=== PATIENT | female | born 1960 | race African-American/Black ===

== ENCOUNTER 2020-05-17 06:37 | Inpatient (IN) | payer MEDICAID ==
[~2020-05-17] VITALS: Ht 160 cm; Wt 71.3 kg
[~2020-05-17 06:37] MED LIST: ALBU18HF2 IH; FLUT1DIS3 INH; IPRA3AMP9 NEB; MET5 GT; P20 PO; THEOL PO
[2020-05-17] MEDS ORDERED: METHYLPREDNISOLONE SOD SUCC 125 MG/2 ML VIAL IV STA (07:20)
[2020-05-17] MEDS ORDERED: IPRATROPIUM BROMIDE (0.02%) 0.5MG/2.5ML NEB HHN STA (07:20)
[2020-05-17] MEDS ORDERED: MAGNESIUM 2 G PREMIX 50 ML IV ONE (07:30)
[2020-05-17 08:00] LABS: EOSINOPHILS % 7.1 % (0.0-5.0); HEMATOCRIT. 35.2 % (36.0-48.0); HEMOGLOBIN. 11.2 g/dL (12.0-16.0); LYMPHOCYTES % 45.2 % (20.0-50.0); MEAN CORPUSCULAR HEMOGLOBIN 25.4 pg (28.0-32.0); MEAN PLATELET VOLUME 9.5 fl (7.4-10.4); MONOCYTES % 5.6 % (2.0-8.0); NEUTROPHILS % 41.1 % (40.0-76.0); PLATELET 416 x1000/uL (130-400); RED CELL DISTRIBUTION WIDTH 16.9 % (11.6-14.6)
[2020-05-17 08:07] LABS: CHLORIDE 105 mEq/L (98-107)
[2020-05-17] MEDS: ALBUTEROL (0.083%) 2.5MG/3ML NEB HHN SCH ×3 (08:10→08:50)
[2020-05-17] MEDS ORDERED: AZITHROMYCIN 500 MG in DEXT 5% WATER 250 ML IV SCH (10:00)
[2020-05-17] MEDS ORDERED: CEFTRIAXONE 1 G PREMIX 50 ML IV SCH (10:00)
[2020-05-17] MEDS ORDERED: ALBUTEROL (0.5%) 2.5MG/0.5ML NEB HHN ONE (12:45)
[2020-05-17] MEDS ORDERED: ONDANSETRON HCL 4MG/2ML INJ IV PRN (15:15)
[2020-05-17] MEDS ORDERED: ACETAMINOPHEN 325MG TABLET PO PRN (15:15)
[2020-05-17] MEDS: METHYLPREDNISOLONE SOD SUCC 40 MG/ML VIAL IV SCH ×2 (17:10→22:00)
[2020-05-17] MEDS ORDERED: ALBUTEROL 6.7GM HFA INHALER ORI SCH (18:00)
[2020-05-17] MEDS: ENOXAPARIN 40MG/0.4ML SYR SUBCUT SCH (20:00)
[2020-05-17] MEDS: IPRATROPIUM/ALBUTEROL 0.5-3(2.5)MG/3ML NEB HHN SCH (20:42)
[2020-05-17] MEDS: FAMOTIDINE 20MG TABLET PO SCH (21:00)
[2020-05-18] VITALS (7 sets, daily range): BP systolic 116–168; BP diastolic 73–89
[2020-05-18] MEDS: IPRATROPIUM/ALBUTEROL 0.5-3(2.5)MG/3ML NEB HHN PRN ×3 (00:41→15:23)
[2020-05-18] MEDS ORDERED: METH-611 PO (02:06)
[2020-05-18] MEDS: METHYLPREDNISOLONE SOD SUCC 40 MG/ML VIAL IV SCH ×3 (06:22→21:17)
[2020-05-18] MEDS: AZITHROMYCIN 250 MG TABLET PO SCH (08:14)
[2020-05-18] MEDS: FAMOTIDINE 20MG TABLET PO SCH ×2 (08:14→21:17)
[2020-05-18] MEDS: IPRATROPIUM/ALBUTEROL 0.5-3(2.5)MG/3ML NEB HHN SCH ×3 (09:37→21:14)
[2020-05-18] MEDS ORDERED: CEFTRIAXONE 1,000 MG in DEXTROSE 5% WATER 50 ML IV SCH (11:30)
[2020-05-18] MEDS: CEFTRIAXONE 1,000 MG in DEXTROSE 5% WATER 50 ML IV SCH (12:41)
[2020-05-18] MEDS: BENZONATATE 100MG CAPSULE PO PRN (14:12)
[2020-05-18] MEDS: METHADONE HCL 10MG TABLET PO SCH (15:04)
[2020-05-18] MEDS: ENOXAPARIN 40MG/0.4ML SYR SUBCUT SCH (21:17)
[2020-05-19] VITALS: BP 137/91
[2020-05-19] MEDS: IPRATROPIUM/ALBUTEROL 0.5-3(2.5)MG/3ML NEB HHN SCH ×4 (01:03→20:15)
[2020-05-19 04:00] VITALS: BP 135/72
[2020-05-19] MEDS: METHYLPREDNISOLONE SOD SUCC 40 MG/ML VIAL IV SCH ×3 (06:45→21:38)
[2020-05-19 08:07] VITALS: BP 134/87
[2020-05-19] MEDS: AZITHROMYCIN 250 MG TABLET PO SCH (09:13)
[2020-05-19] MEDS: METHADONE HCL 10MG TABLET PO SCH (09:13)
[2020-05-19] MEDS: FAMOTIDINE 20MG TABLET PO SCH ×2 (09:13→21:38)
[2020-05-19 12:00] VITALS: BP 115/88
[2020-05-19] MEDS: CEFTRIAXONE 1,000 MG in DEXTROSE 5% WATER 50 ML IV SCH (13:26)
[2020-05-19 16:06] VITALS: BP 147/92
[2020-05-19] MEDS ORDERED: TERBUTALINE SULFATE 1MG/ML VIAL SUBCUT NR (17:45)
[2020-05-19] MEDS: IPRATROPIUM/ALBUTEROL 0.5-3(2.5)MG/3ML NEB HHN PRN (18:27)
[2020-05-19 20:00] VITALS: BP 143/66
[2020-05-19] MEDS: ENOXAPARIN 40MG/0.4ML SYR SUBCUT SCH (21:38)
[2020-05-19] MEDS: BENZONATATE 100MG CAPSULE PO PRN (21:47)
[2020-05-20] MEDS: IPRATROPIUM/ALBUTEROL 0.5-3(2.5)MG/3ML NEB HHN SCH ×6 (00:05→20:25)
[2020-05-20 00:35] VITALS: BP 161/86
[2020-05-20 04:00] VITALS: BP 140/93
[2020-05-20] MEDS: METHYLPREDNISOLONE SOD SUCC 40 MG/ML VIAL IV SCH ×3 (06:20→21:42)
[2020-05-20] MEDS: THROAT LOZENGES-BENZOCAINE/MENTH/CETYLPYRD CL LOZENGES MM PRN ×2 (06:20→12:45)
[2020-05-20 08:00] VITALS: BP 146/88
[2020-05-20] MEDS: METHADONE HCL 10MG TABLET PO SCH (09:19)
[2020-05-20] MEDS: FAMOTIDINE 20MG TABLET PO SCH ×2 (09:19→20:50)
[2020-05-20] MEDS: AZITHROMYCIN 250 MG TABLET PO SCH (10:14)
[2020-05-20 12:00] VITALS: BP 150/88
[2020-05-20] MEDS: CEFTRIAXONE 1,000 MG in DEXTROSE 5% WATER 50 ML IV SCH (13:03)
[2020-05-20 16:00] VITALS: BP 150/88
[2020-05-20 20:00] VITALS: BP 155/80
[2020-05-20] MEDS: ENOXAPARIN 40MG/0.4ML SYR SUBCUT SCH (20:50)
[2020-05-21] VITALS: BP 143/81
[2020-05-21] MEDS: IPRATROPIUM/ALBUTEROL 0.5-3(2.5)MG/3ML NEB HHN SCH ×6 (00:26→21:21)
[2020-05-21] MEDS: THROAT LOZENGES-BENZOCAINE/MENTH/CETYLPYRD CL LOZENGES MM PRN (00:29)
[2020-05-21 04:00] VITALS: BP 131/79
[2020-05-21] MEDS: METHYLPREDNISOLONE SOD SUCC 40 MG/ML VIAL IV SCH ×2 (06:11→06:59)
[2020-05-21 08:00] VITALS: BP 161/98
[2020-05-21] MEDS: AZITHROMYCIN 250 MG TABLET PO SCH (10:30)
[2020-05-21] MEDS: FAMOTIDINE 20MG TABLET PO SCH ×2 (10:30→20:37)
[2020-05-21] MEDS: METHADONE HCL 10MG TABLET PO SCH (10:32)
[2020-05-21] MEDS: CEFTRIAXONE 1,000 MG in DEXTROSE 5% WATER 50 ML IV SCH (12:18)
[2020-05-21] MEDS ORDERED: TERBUTALINE SULFATE 1MG/ML VIAL SUBCUT ONE (13:30)
[2020-05-21] MEDS: LORATADINE 10MG TABLET PO SCH (14:51)
[2020-05-21] MEDS: THEOPHYLLINE ANHYDROUS 80 MG/15 ML 120ML PO SCH ×3 (14:53→22:57)
[2020-05-21 16:00] VITALS: BP 136/91
[2020-05-21] MEDS: MONTELUKAST SODIUM 10MG TABLET PO SCH (18:28)
[2020-05-21] MEDS: METHYLPREDNISOLONE SOD SUCC 125 MG/2 ML VIAL IV SCH ×2 (18:28→23:00)
[2020-05-21 20:00] VITALS: BP 122/92
[2020-05-21] MEDS: GUAIFENESIN 600MG ER TABLET PO SCH (20:37)
[2020-05-21] MEDS: ENOXAPARIN 40MG/0.4ML SYR SUBCUT SCH (20:38)
[2020-05-22] VITALS: BP 156/78
[2020-05-22] MEDS: IPRATROPIUM/ALBUTEROL 0.5-3(2.5)MG/3ML NEB HHN SCH ×6 (00:37→20:46)
[2020-05-22 04:00] VITALS: BP 122/79
[2020-05-22] MEDS: METHYLPREDNISOLONE SOD SUCC 125 MG/2 ML VIAL IV SCH (06:01)
[2020-05-22] MEDS: THEOPHYLLINE ANHYDROUS 80 MG/15 ML 120ML PO SCH ×3 (06:02→21:43)
[2020-05-22 08:45] VITALS: BP 127/91
[2020-05-22] MEDS: FAMOTIDINE 20MG TABLET PO SCH ×2 (08:50→21:42)
[2020-05-22] MEDS: LORATADINE 10MG TABLET PO SCH (08:50)
[2020-05-22] MEDS: GUAIFENESIN 600MG ER TABLET PO SCH ×2 (08:50→21:42)
[2020-05-22] MEDS: METHADONE HCL 10MG TABLET PO SCH (08:52)
[2020-05-22 12:00] VITALS: BP 130/86
[2020-05-22] MEDS: METHYLPREDNISOLONE SOD SUCC 40 MG/ML VIAL IV SCH ×2 (14:13→21:42)
[2020-05-22] MEDS: CEFTRIAXONE 1,000 MG in DEXTROSE 5% WATER 50 ML IV SCH (14:13)
[2020-05-22] MEDS ORDERED: MONT10TA21 PO (15:24)
[2020-05-22] MEDS ORDERED: THEOL PO (15:24)
[2020-05-22] MEDS ORDERED: CLAR10 PO (15:24)
[2020-05-22] MEDS ORDERED: P20 MT (15:24)
[2020-05-22] MEDS ORDERED: FLUT1DIS3 INH (15:24)
[2020-05-22] MEDS ORDERED: ALBU18HF2 IH (15:24)
[2020-05-22] MEDS ORDERED: BENZ100C86 PO (15:24)
[2020-05-22] MEDS ORDERED: GUAI600T44 PO (15:24)
[2020-05-22] MEDS ORDERED: IPRA3AMP9 NEB (15:24)
[2020-05-22 16:00] VITALS: BP 132/85
[2020-05-22] MEDS: MONTELUKAST SODIUM 10MG TABLET PO SCH (18:02)
[2020-05-22 20:00] VITALS: BP 142/85
[2020-05-22] MEDS: ENOXAPARIN 40MG/0.4ML SYR SUBCUT SCH (20:26)
[2020-05-23] VITALS: BP 133/76
[2020-05-23] MEDS: IPRATROPIUM/ALBUTEROL 0.5-3(2.5)MG/3ML NEB HHN SCH ×6 (00:55→21:31)
[2020-05-23 04:00] VITALS: BP 143/92
[2020-05-23] MEDS: THEOPHYLLINE ANHYDROUS 80 MG/15 ML 120ML PO SCH ×3 (06:00→22:00)
[2020-05-23] MEDS: METHYLPREDNISOLONE SOD SUCC 40 MG/ML VIAL IV SCH ×3 (06:24→22:00)
[2020-05-23 08:00] VITALS: BP 141/85
[2020-05-23] MEDS: GUAIFENESIN 600MG ER TABLET PO SCH ×2 (08:22→20:15)
[2020-05-23] MEDS: FAMOTIDINE 20MG TABLET PO SCH ×2 (08:22→20:15)
[2020-05-23] MEDS: LORATADINE 10MG TABLET PO SCH (08:23)
[2020-05-23] MEDS: METHADONE HCL 10MG TABLET PO SCH (08:24)
[2020-05-23 12:00] VITALS: BP 130/83
[2020-05-23] MEDS: CEFTRIAXONE 1,000 MG in DEXTROSE 5% WATER 50 ML IV SCH (14:03)
[2020-05-23 16:00] VITALS: BP 134/76
[2020-05-23] MEDS: MONTELUKAST SODIUM 10MG TABLET PO SCH (17:54)
[2020-05-23 20:00] VITALS: BP 126/72
[2020-05-23] MEDS: ENOXAPARIN 40MG/0.4ML SYR SUBCUT SCH (20:15)
[2020-05-24] VITALS: BP 130/74
[2020-05-24] MEDS: IPRATROPIUM/ALBUTEROL 0.5-3(2.5)MG/3ML NEB HHN SCH ×3 (00:59→08:07)
[2020-05-24 04:00] VITALS: BP 132/67
[2020-05-24] MEDS: METHYLPREDNISOLONE SOD SUCC 40 MG/ML VIAL IV SCH (06:00)
[2020-05-24] MEDS: THEOPHYLLINE ANHYDROUS 80 MG/15 ML 120ML PO SCH (06:00)
[2020-05-24 08:04] VITALS: BP 139/94
[2020-05-24 08:29] VITALS: BP 139/94
[2020-05-24] MEDS: LORATADINE 10MG TABLET PO SCH (09:22)
[2020-05-24] MEDS: FAMOTIDINE 20MG TABLET PO SCH (09:22)
[2020-05-24] MEDS: GUAIFENESIN 600MG ER TABLET PO SCH (09:22)
== END 2020-05-24 10:30 | disposition home or self-care (01) | DRG 720 ==
LOC: ER 07:07 → 6WST 12:50 → ENRESERV 23:06
PROVIDERS: ADMIT Internal Medicine; ATTEND Internal Medicine
DX: A41.9 Sepsis, unspecified organism (principal); J45.901 Unspecified asthma with (acute) exacerbation; J96.01 Acute respiratory failure with hypoxia; J18.9 Pneumonia, unspecified organism; D72.10 Eosinophilia, unspecified; Z20.822 Contact with and (suspected) exposure to COVID-19
CPT/HCPCS: 36415; 71045; 80053; 85025; 87426; 93005; 94640; 94644; 96365; 99291; C1893; J0456; J0696; J1650; J2920; J2930; J3105; J3475; J7060

== ENCOUNTER 2021-05-17 21:20 | Emergency (ER) | payer MEDICAID, OTHER ==
[~2021-05-17] VITALS: Ht 172.7 cm; Wt 77.0 kg
[~2021-05-17 21:20] MED LIST changes: +BENZ100C86 PO; +CLAR10 PO; +GUAI600T44 PO; -MET5 GT; +METH-817 GT; +METH-819 PO; +MONT10TA21 PO; +P20 MT; -P20 PO
[2021-05-17 21:23] VITALS: BP 132/82
[2021-05-17] MEDS ORDERED: IPRATROPIUM BROMIDE (0.02%) 0.5MG/2.5ML NEB HHN STA (21:46)
[2021-05-17] MEDS ORDERED: PREDNISONE 20MG TABLET PO STA (21:46)
[2021-05-17] MEDS ORDERED: ALBUTEROL (0.083%) 2.5MG/3ML NEB HHN STA (21:46)
[2021-05-18] MEDS ORDERED: ALBUTEROL (0.083%) 2.5MG/3ML NEB HHN STA (00:32)
[2021-05-18] MEDS ORDERED: DOXY100C5 MT (02:01)
[2021-05-18] MEDS ORDERED: ALBU6.7H9 INH (02:01)
[2021-05-18] MEDS ORDERED: P50 MT (02:01)
== END 2021-05-18 02:10 | disposition home or self-care (01) ==
LOC: ER 21:20
DX: J44.1 Chronic obstructive pulmonary disease with (acute) exacerbation (principal); Z87.891 Personal history of nicotine dependence; Z79.899 Other long term (current) drug therapy
CPT/HCPCS: 71045; 93005; 94640; 99284; J7512; Z7610

== ENCOUNTER 2021-07-23 17:27 | Emergency (ER) | payer MEDICAID, OTHER ==
[~2021-07-23] VITALS: Ht 167.6 cm; Wt 69.0 kg
[~2021-07-23 17:27] MED LIST changes: +ALBU6.7H9 INH; +DOXY100C5 MT; +P50 MT
[2021-07-23] MEDS ORDERED: IPRATROPIUM BROMIDE (0.02%) 0.5MG/2.5ML NEB HHN STA (18:19)
[2021-07-23] MEDS ORDERED: PREDNISONE 20MG TABLET PO STA (18:19)
[2021-07-23] MEDS ORDERED: ALBUTEROL (0.083%) 2.5MG/3ML NEB HHN STA (18:19)
[2021-07-23] MEDS ORDERED: ALBU6.7H9 INH (20:21)
[2021-07-23] MEDS ORDERED: ALBU05 NEB (20:21)
[2021-07-23] MEDS ORDERED: P50 MT (20:21)
[2021-07-23 20:37] VITALS: BP 138/83
== END 2021-07-23 21:28 | disposition home or self-care (01) ==
LOC: ER 17:27
DX: J45.901 Unspecified asthma with (acute) exacerbation (principal); Z79.899 Other long term (current) drug therapy
CPT/HCPCS: 94644; 99285; J7512; Z7610

== ENCOUNTER 2022-05-15 22:23 | Inpatient (IN) | payer MEDICAID, OTHER ==
[~2022-05-15] VITALS: Ht 162.6 cm; Wt 69.9 kg
[~2022-05-15 22:23] MED LIST changes: +ALBU05 NEB; +ALBU6.7H3 INH; -ALBU6.7H9 INH
[2022-05-15] MEDS ORDERED: METHYLPREDNISOLONE SOD SUCC 125 MG/2 ML VIAL IV STA (23:49)
[2022-05-15] MEDS ORDERED: IPRATROPIUM BROMIDE (0.02%) 0.5MG/2.5ML NEB HHN STA (23:49)
[2022-05-15] MEDS ORDERED: MAGNESIUM 2 G PREMIX 50 ML IV STA (23:49)
[2022-05-15] MEDS ORDERED: ALBUTEROL (0.083%) 2.5MG/3ML NEB HHN STA (23:49)
[2022-05-16] MEDS ORDERED: METHYLPREDNISOLONE SOD SUCC 125 MG/2 ML VIAL IV NR (01:45)
[2022-05-16] MEDS ORDERED: AZITHROMYCIN 500MG/250ML 250 ML IV ONE (02:30)
[2022-05-16] MEDS ORDERED: SODIUM CHLORIDE 0.9% 1,000 ML IV ONE (02:30)
[2022-05-16] MEDS ORDERED: CEFTRIAXONE 1 G PREMIX 50 ML IV ONE (02:30)
[2022-05-16 08:27] LABS: HEMOGLOBIN 10.3 g/dL (12.0-16.0); MEAN CORPUSCULAR HEMOGLOBIN 24.7 pg (28.0-32.0); MEAN CORPUSCULAR VOLUME 76.9 fL (81.0-99.0); PLATELET 410 x1000/uL (130-400); RED BLOOD CELL COUNT 4.17 mill/uL (4.2-5.4); RED CELL DISTRIBUTION WIDTH 16.3 % (11.6-14.6)
[2022-05-16 08:57] LABS: CHLORIDE 105 mEq/L (98-107)
[2022-05-16] MEDS ORDERED: IPRATROPIUM/ALBUTEROL 0.5-3(2.5)MG/3ML NEB HHN SCH (12:00)
[2022-05-16] MEDS ORDERED: ONDANSETRON HCL 4MG/2ML INJ IV PRN (12:00)
[2022-05-16] MEDS: METHYLPREDNISOLONE SOD SUCC 40 MG/ML VIAL IV SCH ×2 (12:24→20:38)
[2022-05-16] MEDS: ACETAMINOPHEN 325MG TABLET PO PRN ×2 (12:24→19:28)
[2022-05-16] MEDS: ENOXAPARIN 40MG/0.4ML SYR SUBCUT SCH (12:24)
[2022-05-16 16:00] VITALS: BP 179/109
[2022-05-16 17:55] VITALS: BP 179/109
[2022-05-16] MEDS: AMLODIPINE 10MG TABLET PO SCH (18:15)
[2022-05-16 20:00] VITALS: BP 152/95
[2022-05-16] MEDS: FAMOTIDINE 20MG TABLET PO SCH (20:38)
[2022-05-16] MEDS ORDERED: HYDROCODONE/ACETAMINOPHEN 10/325MG TABLET PO PRN (22:45)
[2022-05-17] VITALS: BP 144/82
[2022-05-17] MEDS: IPRATROPIUM BROMIDE (0.02%) 0.5MG/2.5ML NEB HHN SCH ×4 (02:09→20:30)
[2022-05-17] MEDS: ALBUTEROL (0.083%) 2.5MG/3ML NEB HHN SCH ×3 (02:52→20:30)
[2022-05-17 04:00] VITALS: BP 124/76
[2022-05-17] MEDS: METHYLPREDNISOLONE SOD SUCC 40 MG/ML VIAL IV SCH ×3 (04:45→20:07)
[2022-05-17 08:11] VITALS: BP 146/87
[2022-05-17] MEDS: AMLODIPINE 10MG TABLET PO SCH (09:23)
[2022-05-17 12:00] VITALS: BP 136/88
[2022-05-17] MEDS: ENOXAPARIN 40MG/0.4ML SYR SUBCUT SCH (12:03)
[2022-05-17 15:57] VITALS: BP 133/84
[2022-05-17] MEDS ORDERED: NALOXONE HCL 0.4MG/ML VIAL IV PRN (19:45)
[2022-05-17 20:00] VITALS: BP 159/94
[2022-05-17] MEDS: ACETAMINOPHEN 325MG TABLET PO PRN (20:08)
[2022-05-17] MEDS: FAMOTIDINE 20MG TABLET PO SCH (20:08)
[2022-05-18] VITALS: BP 132/82
[2022-05-18] MEDS: ALBUTEROL (0.083%) 2.5MG/3ML NEB HHN SCH ×3 (02:09→15:33)
[2022-05-18 04:00] VITALS: BP 138/81
[2022-05-18] MEDS: METHYLPREDNISOLONE SOD SUCC 40 MG/ML VIAL IV SCH ×2 (06:13→12:13)
[2022-05-18 08:00] VITALS: BP 134/89
[2022-05-18] MEDS: IPRATROPIUM BROMIDE (0.02%) 0.5MG/2.5ML NEB HHN SCH ×2 (09:32→15:33)
[2022-05-18] MEDS: AMLODIPINE 10MG TABLET PO SCH (09:52)
[2022-05-18 11:52] VITALS: BP 147/98
[2022-05-18] MEDS: ENOXAPARIN 40MG/0.4ML SYR SUBCUT SCH (12:14)
[2022-05-18] MEDS ORDERED: P20 MT (12:53)
[2022-05-18] MEDS ORDERED: METHADONE HCL 10MG TABLET PO SCH (14:00)
[2022-05-18 14:49] VITALS: BP 147/92
[2022-05-18 16:00] VITALS: BP 117/71
== END 2022-05-18 16:55 | disposition home or self-care (01) | DRG 140 ==
LOC: ER 22:23 → 7WST 05-16 04:03 → EDBEDREQ 05-16 04:13 → EDBEDREQTM 05-16 04:13
PROVIDERS: ADMIT Internal Medicine; ATTEND Internal Medicine
DX: J44.1 Chronic obstructive pulmonary disease with (acute) exacerbation (principal); J96.00 Acute respiratory failure, unspecified whether with hypoxia or hypercapnia; J45.902 Unspecified asthma with status asthmaticus; F11.20 Opioid dependence, uncomplicated; D64.9 Anemia, unspecified; Z82.49 Family history of ischemic heart disease and other diseases of the circulatory system; Z79.899 Other long term (current) drug therapy; Z87.01 Personal history of pneumonia (recurrent)
CPT/HCPCS: 36415; 71045; 80048; 83605; 85027; 94640; 94644; 99291; J0456; J0696; J1650; J2920; J2930; J3475; J7030

== ENCOUNTER 2022-07-08 22:43 | Inpatient (IN) | payer MEDICAID, OTHER ==
[~2022-07-08] VITALS: Ht 162.6 cm; Wt 70.5 kg
[~2022-07-08 22:43] MED LIST changes: +MONT-46 PO; -MONT10TA21 PO; -P50 MT
[2022-07-08] MEDS ORDERED: IPRATROPIUM BROMIDE (0.02%) 0.5MG/2.5ML NEB HHN STA (23:14)
[2022-07-08] MEDS ORDERED: ALBUTEROL (0.083%) 2.5MG/3ML NEB HHN STA (23:14)
[2022-07-08] MEDS ORDERED: METHYLPREDNISOLONE SOD SUCC 125 MG/2 ML VIAL IV STA (23:14)
[2022-07-08] MEDS ORDERED: MAGNESIUM 2 G PREMIX 50 ML IV STA (23:14)
[2022-07-09] MEDS ORDERED: IPRATROPIUM BROMIDE (0.02%) 0.5MG/2.5ML NEB HHN NR (03:45)
[2022-07-09] MEDS ORDERED: ALBUTEROL (0.083%) 2.5MG/3ML NEB HHN NR (03:45)
[2022-07-09 04:17] LABS: BASOPHILS % 0.2 % (0.0-2.0); EOSINOPHILS % 0.2 % (0.0-5.0); HEMATOCRIT. 30.6 % (36.0-48.0); HEMOGLOBIN. 10.1 g/dL (12.0-16.0); MEAN CORPUSCULAR HEMOGLOBIN 25.6 pg (28.0-32.0); MEAN CORPUSCULAR VOLUME 77.8 fL (81.0-99.0); MEAN PLATELET VOLUME 8.9 fl (7.4-10.4); MONOCYTES % 0.9 % (2.0-8.0); NEUTROPHILS % 89.7 % (40.0-76.0); PLATELET 306 x1000/uL (130-400); RED BLOOD CELL COUNT 3.94 mill/uL (4.2-5.4)
[2022-07-09 04:31] LABS: CHLORIDE 105 mEq/L (98-107)
[2022-07-09] MEDS ORDERED: POTASSIUM CHLORIDE 20MEQ TABLET SR PO SCH (15:30)
[2022-07-09 16:30] VITALS: BP 137/73
[2022-07-09] MEDS ORDERED: METH10OR11 PO ×2 (16:33→18:06)
[2022-07-09] MEDS ORDERED: TOPUD PO (16:33)
[2022-07-09] MEDS ORDERED: DIPH25CA83 MT (16:33)
[2022-07-09] MEDS ORDERED: *PATIENT'S OWN MEDICATION STORAGE XX SCH (17:00)
[2022-07-09] MEDS ORDERED: ACETAMINOPHEN 325MG TABLET PO PRN (17:15)
[2022-07-09] MEDS ORDERED: IPRATROPIUM/ALBUTEROL 0.5-3(2.5)MG/3ML NEB NEB PRN (17:15)
[2022-07-09] MEDS ORDERED: ONDANSETRON HCL 4MG/2ML INJ IV PRN (17:15)
[2022-07-09] MEDS ORDERED: ACETAMINOPHEN 325MG TABLET PO SCH (17:30)
[2022-07-09] MEDS ORDERED: BENZONATATE 100MG CAPSULE PO PRN (17:30)
[2022-07-09] MEDS ORDERED: ALBUTEROL 6.7GM HFA INHALER INH PRN ×2 (17:30)
[2022-07-09] MEDS ORDERED: ALBUTEROL (0.5%) 2.5MG/0.5ML NEB HHN SCH (17:30)
[2022-07-09] MEDS: GUAIFENESIN 600MG ER TABLET PO SCH (20:14)
[2022-07-09] MEDS: DIPHENHYDRAMINE 25MG CAPSULE PO SCH (20:14)
[2022-07-09] MEDS: IPRATROPIUM/ALBUTEROL 0.5-3(2.5)MG/3ML NEB NEB SCH (21:19)
[2022-07-09] MEDS: BUDESONIDE 0.5MG/2ML NEB HHN SCH (21:19)
[2022-07-09] MEDS: METHYLPREDNISOLONE SOD SUCC 40 MG/ML VIAL IV SCH (23:33)
[2022-07-09] MEDS ORDERED: POTASSIUM CHLORIDE 20MEQ TABLET SR PO NR (23:45)
[2022-07-10] MEDS: IPRATROPIUM/ALBUTEROL 0.5-3(2.5)MG/3ML NEB NEB SCH ×4 (02:18→20:50)
[2022-07-10] MEDS: METHYLPREDNISOLONE SOD SUCC 40 MG/ML VIAL IV SCH ×3 (05:43→21:16)
[2022-07-10 07:32] LABS: BASOPHILS % 0.1 % (0.0-2.0); HEMATOCRIT. 31.6 % (36.0-48.0); HEMOGLOBIN. 10.2 g/dL (12.0-16.0); LYMPHOCYTES % 13.6 % (20.0-50.0); MEAN CORPUSCULAR HEMOGLOBIN 25.7 pg (28.0-32.0); MEAN CORPUSCULAR VOLUME 79.4 fL (81.0-99.0); MEAN PLATELET VOLUME 9.7 fl (7.4-10.4); MONOCYTES % 1.8 % (2.0-8.0); NEUTROPHILS % 84.5 % (40.0-76.0); PLATELET 361 x1000/uL (130-400); RED BLOOD CELL COUNT 3.98 mill/uL (4.2-5.4); RED CELL DISTRIBUTION WIDTH 17.2 % (11.6-14.6)
[2022-07-10 08:07] LABS: CHLORIDE 105 mEq/L (98-107)
[2022-07-10] MEDS: METHADONE HCL 5MG TABLET PO SCH (08:47)
[2022-07-10] MEDS: METHADONE HCL 10MG TABLET PO SCH (08:47)
[2022-07-10] MEDS: ASPIRIN 81MG EC TABLET PO SCH (08:48)
[2022-07-10] MEDS: GUAIFENESIN 600MG ER TABLET PO SCH ×2 (08:48→20:13)
[2022-07-10] MEDS ORDERED: MEDICATION NOT ON FORMULARY EA (Fluticasone/Salmeterol (Advair 250-50 Diskus) 1 PUFF) INH SCH (09:00)
[2022-07-10] MEDS ORDERED: METHADONE HCL 10MG TABLET PO SCH (09:00)
[2022-07-10] MEDS: BUDESONIDE 0.5MG/2ML NEB HHN SCH ×2 (09:33→20:50)
[2022-07-10] MEDS: MONTELUKAST SODIUM 10MG TABLET PO SCH (17:27)
[2022-07-10 20:00] VITALS: BP 127/72
[2022-07-10] MEDS: DIPHENHYDRAMINE 25MG CAPSULE PO SCH (20:13)
[2022-07-11] VITALS: BP 123/74
[2022-07-11] MEDS: IPRATROPIUM/ALBUTEROL 0.5-3(2.5)MG/3ML NEB NEB SCH ×4 (02:02→21:48)
[2022-07-11] MEDS: METHYLPREDNISOLONE SOD SUCC 40 MG/ML VIAL IV SCH ×3 (06:24→21:29)
[2022-07-11 08:00] VITALS: BP 140/85
[2022-07-11] MEDS: ASPIRIN 81MG EC TABLET PO SCH (09:47)
[2022-07-11] MEDS: GUAIFENESIN 600MG ER TABLET PO SCH ×2 (09:47→21:29)
[2022-07-11] MEDS: METHADONE HCL 10MG TABLET PO SCH (09:49)
[2022-07-11] MEDS: METHADONE HCL 5MG TABLET PO SCH (09:49)
[2022-07-11 12:00] VITALS: BP 151/85
[2022-07-11] MEDS: BUDESONIDE 0.5MG/2ML NEB HHN SCH ×2 (15:43→21:48)
[2022-07-11 16:20] VITALS: BP 112/70
[2022-07-11] MEDS ORDERED: BENZ100C86 PO (16:22)
[2022-07-11] MEDS ORDERED: MONT-46 PO (16:22)
[2022-07-11] MEDS ORDERED: P20 MT (16:22)
[2022-07-11] MEDS ORDERED: IPRA3AMP9 NEB (16:22)
[2022-07-11] MEDS ORDERED: CLAR10 PO (16:22)
[2022-07-11] MEDS ORDERED: FLUT1DIS3 INH (16:22)
[2022-07-11] MEDS ORDERED: ALBU6.7H3 INH (16:22)
[2022-07-11] MEDS ORDERED: GUAI600T44 PO (16:22)
[2022-07-11] MEDS: MONTELUKAST SODIUM 10MG TABLET PO SCH (18:01)
[2022-07-11 20:00] VITALS: BP 114/86
[2022-07-11] MEDS: DIPHENHYDRAMINE 25MG CAPSULE PO SCH (21:29)
[2022-07-12] VITALS: BP 110/82
[2022-07-12] MEDS: IPRATROPIUM/ALBUTEROL 0.5-3(2.5)MG/3ML NEB NEB SCH ×2 (01:37→08:15)
[2022-07-12 04:00] VITALS: BP 135/88
[2022-07-12] MEDS: METHYLPREDNISOLONE SOD SUCC 40 MG/ML VIAL IV SCH (06:38)
[2022-07-12] MEDS: BUDESONIDE 0.5MG/2ML NEB HHN SCH (08:15)
[2022-07-12] MEDS: ASPIRIN 81MG EC TABLET PO SCH (09:43)
[2022-07-12] MEDS: GUAIFENESIN 600MG ER TABLET PO SCH (09:43)
[2022-07-12] MEDS: METHADONE HCL 5MG TABLET PO SCH (10:20)
[2022-07-12] MEDS: METHADONE HCL 10MG TABLET PO SCH (10:20)
[2022-07-12 11:06] VITALS: BP 124/77
== END 2022-07-12 13:27 | disposition home or self-care (01) | DRG 133 ==
LOC: ER 22:43 → 6EST 07-09 05:12
PROVIDERS: ADMIT Internal Medicine; ATTEND Internal Medicine
DX: J96.00 Acute respiratory failure, unspecified whether with hypoxia or hypercapnia (principal); J45.902 Unspecified asthma with status asthmaticus; E87.6 Hypokalemia; D50.9 Iron deficiency anemia, unspecified; Z82.49 Family history of ischemic heart disease and other diseases of the circulatory system; Z87.891 Personal history of nicotine dependence
CPT/HCPCS: 36415; 71045; 80053; 83880; 85025; 93005; 94640; 94644; 99285; J2920; J2930; J3475; J7626; Q0163

== ENCOUNTER 2024-04-10 07:12 | Emergency (ER) | payer MEDICAID ==
[~2024-04-10] VITALS: Ht 162.6 cm; Wt 71.0 kg
[~2024-04-10 07:12] MED LIST changes: -ALBU05 NEB; -ALBU18HF2 IH; -DOXY100C5 MT; +FAMO20TA8 MT; -METH-817 GT; -METH-819 PO; +METH10OR11 PO; -THEOL PO; +TOPUD PO
[2024-04-10 07:15] VITALS: O2SAT 98
[2024-04-10 07:45] VITALS: PULSE 88; RESP 16
[2024-04-10] MEDS: ALBUTEROL (0.083%) 2.5MG/3ML NEB HHN STA (07:45)
[2024-04-10] MEDS: IPRATROPIUM BROMIDE (0.02%) 0.5MG/2.5ML NEB HHN STA (07:45)
[2024-04-10 08:35] LABS: BASOPHILS % 0.7 % (0.0-2.0); DIFFERENTIAL COMMENT 0; EOSINOPHILS % 4.7 % (0.0-5.0); HEMATOCRIT. 30.9 % (36.0-48.0); LYMPHOCYTES % 37.8 % (20.0-50.0); MEAN CORPUSCULAR HEMOGLOBIN 25.8 pg (28.0-32.0); MEAN CORPUSCULAR HGB CONC 32.3 g/dL (31.0-37.0); MEAN CORPUSCULAR VOLUME 79.9 fL (81.0-99.0); MEAN PLATELET VOLUME 8.8 fl (7.4-10.4); MONOCYTES % 6.2 % (2.0-8.0); NEUTROPHILS % 50.6 % (40.0-76.0); PLATELET 349 x1000/uL (130-400); RED BLOOD CELL COUNT 3.87 mill/uL (4.2-5.4); RED CELL DISTRIBUTION WIDTH 16.6 % (11.6-14.6); WHITE BLOOD COUNT 6.8 x1000/uL (4.5-11.0)
[2024-04-10 08:45] LABS: CHLORIDE 106 mEq/L (98-107); POTASSIUM 4.4 mEq/L (3.5-5.1); SODIUM 143 mEq/L (136-145)
[2024-04-10 08:46] LABS: CALCIUM 9.8 mg/dL (8.7-10.4); CARBON DIOXIDE 28 mEq/L (21-32)
[2024-04-10 08:49] LABS: PROTHROMBIN TIME 10.7 sec (9.6-11.0)
[2024-04-10 08:51] LABS: CREATININE 0.9 mg/dL (0.6-1.0); GLUCOSE 116 mg/dL (70-105); UREA NITROGEN BLOOD 10 mg/dL (9-23)
[2024-04-10 08:53] LABS: ALANINE AMINOTRANSFERASE 15 IU/L (10-49); ALBUMIN 4.3 g/dL (3.2-4.8); ASPARTATE AMINOTRANSFERASE 22 IU/L (<34); BILIRUBIN TOTAL 0.3 mg/dL (0.1-1.0)
[2024-04-10] MEDS: PREDNISONE 20MG TABLET PO NR (09:12)
[2024-04-10] MEDS: PREDNISONE 20MG TABLET PO STA (09:12)
[2024-04-10 09:13] LABS: BILIRUBIN DIRECT < 0.1 mg/dL (<=3.0); TROPONIN I HIGH SENSITIVITY < 4 ng/L (3.0-34)
[2024-04-10] MEDS ORDERED: IPRATROPIUM/ALBUTEROL 0.5-3(2.5)MG/3ML NEB HHN ONE (10:00)
[2024-04-10 10:31] VITALS: PULSE 78; RESP 16
[2024-04-10] MEDS: IPRATROPIUM/ALBUTEROL 0.5-3(2.5)MG/3ML NEB HHN ONE ×2 (10:31→10:50)
[2024-04-10 10:53] VITALS: PULSE 80; RESP 20
[2024-04-10] MEDS ORDERED: P20 MT (11:59)
[2024-04-10] MEDS ORDERED: ALBU05 NEB (12:01)
[2024-04-10] MEDS ORDERED: ALBU18HF2 IH (12:01)
[2024-04-10 12:14] VITALS: BP 133/88; PULSE 82; RESP 18; TEMP 36.78072; O2SAT 96
== END 2024-04-10 12:15 | disposition home or self-care (01) ==
LOC: ER 07:12
DX: J45.901 Unspecified asthma with (acute) exacerbation (principal); Z79.899 Other long term (current) drug therapy
CPT/HCPCS: 80076; 80048; 83880; 83690; 85025; 85610; 84484; 36415; 71045; 94640; 93005; 99291; J7512; Z7610 ×5

== ENCOUNTER → 2025-03-23 | Emergency (ER) | payer MEDICARE, MEDICAID ==
[~2025-03-23] VITALS: Ht 167.6 cm; Wt 80.0 kg
[~2025-03-23] MED LIST changes: +ALBU05 NEB; +ALBU18HF2 IH; +P50 MT; +PREDNISONE 20MG TABLET PO ONE
[2025-03-23 11:25] VITALS: O2SAT 99
[2025-03-23] MEDS: IPRATROPIUM/ALBUTEROL 0.5-3(2.5)MG/3ML NEB HHN ONE (12:09)
[2025-03-23 12:10] VITALS: PULSE 85; RESP 16
[2025-03-23 14:34] VITALS: BP 139/69; PULSE 89; RESP 17; TEMP 37.2; O2SAT 99
[2025-03-23] MEDS: PREDNISONE 20MG TABLET PO SCH (14:42)
== END | disposition home or self-care (01) ==
LOC: ER 11:03
DX: J45.901 Unspecified asthma with (acute) exacerbation (principal); Z79.51 Long term (current) use of inhaled steroids; Z79.891 Long term (current) use of opiate analgesic; Z20.822 Contact with and (suspected) exposure to COVID-19
CPT/HCPCS: 99283; 94640; J7512; 94070; 94664; 98960